=== PATIENT | male | born 1995 | race American Indian/Alaskan Native ===

== ENCOUNTER 2016-04-21 19:22 | Emergency (ER) | payer MEDICAID, OTHER ==
--- NOTE | 2016-04-21 23:20 | Emergency Department Report ---
HPI - General Chief Complaint: Animal Bite Time Seen by Provider: 04/21/16 23:03 - HPI HPI: 21-year-old male presents today with a dog bite to his left arm and right thigh that occurred at 1830 hrs. today. The dog was unknown therefore patient is unaware of the immunization records. Rates his pain as 8 out of 10. Positive for swelling. Denies fever, chills, nausea, vomiting, chest pain, shortness of breath, abdominal pain. Denies discharge or bleeding. Tetanus status unknown. ED Past Medical Hx - Past Medical History Previous Medical History?: No - Surgical History Past Surgical History?: No - Social History Smoking Status: Never Smoker Substance Use Type: None - Medications Home Medications: Home Medications Medication Instructions Recorded Confirmed Last Taken Type HYDROcodone/APAP 5-325 [May 1 each PO Q6HR PRN #8 tablet 08/07/13 Unknown Rx 5-325 mg TAB] Ondansetron [Zofran Odt] 4 mg SL Q6H PRN #8 tab.rapdis 08/07/13 Unknown Rx Acetaminophen/Codeine [Tylenol #3] 1 tab PO Q6H PRN #10 tab 04/22/16 Unknown Rx Amoxicillin/K Clav Tab [Augmentin 1 tab PO Q12HR #20 tab 04/22/16 Unknown Rx 875 mg] ED Review of Systems ROS: Stated complaint: DOG BITE Other details as noted in HPI Constitutional: denies: chills, fever, malaise Eyes: denies: eye pain ENT: denies: ear pain, throat pain, congestion Respiratory: denies: cough, shortness of breath, wheezing Cardiovascular: denies: chest pain, palpitations Endocrine: no symptoms reported Gastrointestinal: denies: abdominal pain, nausea, vomiting Neurological: denies: headache, weakness Physical Exam - Physical Exam Vital Signs: Vital Signs 04/21/16 21:18 Temperature 98.5 F Pulse Rate 67 Respiratory 18 Rate Blood Pressure 112/66 O2 Sat by Pulse 100 Oximetry Physical Exam: GENERAL: The patient is well-developed and well-nourished. Patient is in NAD. HEAD: Normocephalic. Atraumatic. CHEST/LUNGS: Clear to auscultation throughout. HEART/CARDIOVASCULAR: Regular rate and rhythm. ABDOMEN: Abdomen is soft, nontender. No guarding or rebound tenderness. LEFT UPPER EXTREMITY: 1.5 cm linear, superficial laceration noted over the ventral aspect of distal left forearm. No active bleeding. Minimal tenderness to palpation. Normal sensation. 2 point discrimination intact. Full wrist and digits range of motion. Peripheral pulses intact. Capillary refill less than 2 seconds. RIGHT LOWER EXTREMITY: Superficial bite rodriguez noted over the lateral aspect proximal upper leg. No active bleeding. Peripheral pulses intact. Capillary refill less than 2 seconds. NEURO: Alert and oriented x 3. Normal gait. ED Course Vital Signs 04/21/16 21:18 Temperature 98.5 F Pulse Rate 67 Respiratory 18 Rate Blood Pressure 112/66 O2 Sat by Pulse 100 Oximetry ED Medical Decision Making - Lab Data Vital Signs 04/21/16 21:18 Temperature 98.5 F Pulse Rate 67 Respiratory 18 Rate Blood Pressure 112/66 O2 Sat by Pulse 100 Oximetry - Medical Decision Making 21-year-old male presents today with bite rodriguez to his left forearm and right thigh. His tetanus status was updated today. Patient was given the first rabies vaccination. Explained to patient that he needs to return on day 3, 7 and 14 for his rabies vaccination course. Patient expressed understanding. The wounds were copiously irrigated, triple antibiotic ointment was applied and wound was dressed. Patient is in no acute distress at this time. He will be discharged home and is encouraged to follow up with a primary care provider. He will be sent home on Augmentin and Tylenol 3 and is encouraged to return to the emergency room for any worsening symptoms. Critical care attestation.: If time is entered above; I have spent that time in minutes in the direct care of this critically ill patient, excluding procedure time. ED Disposition Clinical Impression: Dog bite Qualifiers: Encounter type: initial encounter Qualified Code(s): W54.0XXA - Bitten by dog, initial encounter Disposition: DISCHARGED TO HOME OR SELFCARE Is pt being admited?: No Does the pt Need Aspirin: No Condition: Stable Instructions: Animal Bite (ED) Additional Instructions: Return to the ER on day 3, 7 and 14 for your rabies vaccinations. Follow-up with her primary care provider. Return to the emergency department if symptoms worsen. Prescriptions: Acetaminophen/Codeine [Tylenol #3] 1 tab PO Q6H PRN #10 tab PRN Reason: Pain Amoxicillin/K Clav Tab [Augmentin 875 mg] 1 tab PO Q12HR #20 tab Referrals: PRIMARY CARE, [Primary Care Provider] - 3-5 Days [facility] [Outside] - 3-5 Days Forms: Work/School Release Form(ED) Time of Disposition: 01:16
[2016-04-22] MEDS: BOOSTRIX IM ONE (01:11)
[2016-04-22] MEDS: hyperRAB S/D IM ONE (01:13)
[2016-04-22] MEDS: RABAVERT RABIES VACCINE(PCEC) IM ONE (01:13)
[2016-04-22] MEDS: TRIPLE ANTIBIOTIC TP ONE (01:23)
[2016-04-22] MEDS: NACL 0.9% IR ONE (01:24)
[2016-04-22 01:51] VITALS: BP 136/87
== END 2016-04-22 01:54 | disposition home or self-care (01) ==
LOC: ED 19:22
DX: S50.872A Other superficial bite of left forearm, initial encounter (principal); S70.371A Other superficial bite of right thigh, initial encounter; W54.0XXA Bitten by dog, initial encounter; Y93.9 Activity, unspecified; Y92.89 Other specified places as the place of occurrence of the external cause; Y99.9 Unspecified external cause status
CPT/HCPCS: 90375; 90471; 90675; 90715; A6250

== ENCOUNTER 2016-04-25 17:49 | Emergency (ER) | payer OTHER ==
[2016-04-25 18:56] VITALS: BP 129/51
[2016-04-25] MEDS ORDERED: RABAVERT RABIES VACCINE(PCEC) IM ONE (20:34)
--- NOTE | 2016-04-25 21:31 | Emergency Department Report ---
ED Recheck HPI - General Chief Complaint: Recheck/Abnormal Lab/Rx Stated Complaint: RABIES SHOT Time Seen by Provider: 04/25/16 21:25 Source: patient Mode of arrival: Ambulatory Limitations: No Limitations - History of Present Illness Initial Comments: Patient presents today for dose 2/4 of rabies vaccine series. He was seen here on 04/22/16 after he sustained a bite to his left forearm and right thigh by an unprovoked pitbull. He received initial vaccine series on day zero (04/22/16). As of today, he Denies pain, fever, chills, nausea, vomit, hydrophobia, weakness. He has no acute complaints today. - Related Data Previous Rx's Medication Instructions Recorded Last Taken Type HYDROcodone/APAP 5-325 [Triplett 1 each PO Q6HR PRN #8 tablet 08/07/13 Unknown Rx 5-325 mg TAB] Ondansetron [Zofran Odt] 4 mg SL Q6H PRN #8 tab.rapdis 08/07/13 Unknown Rx Acetaminophen/Codeine [Tylenol #3] 1 tab PO Q6H PRN #10 tab 04/22/16 Unknown Rx Amoxicillin/K Clav Tab [Augmentin 1 tab PO Q12HR #20 tab 04/22/16 Unknown Rx 875 mg] Allergies Allergy/AdvReac Type Severity Reaction Status Date / Time No Known Allergies Allergy Verified 04/21/16 21:23 ED Review of Systems ROS: Stated complaint: RABIES SHOT Other details as noted in HPI Comment: All other systems reviewed and negative ED Past Medical Hx - Social History Smoking Status: Never Smoker Substance Use Type: None - Medications Home Medications: Home Medications Medication Instructions Recorded Confirmed Last Taken Type HYDROcodone/APAP 5-325 [Triplett 1 each PO Q6HR PRN #8 tablet 08/07/13 Unknown Rx 5-325 mg TAB] Ondansetron [Zofran Odt] 4 mg SL Q6H PRN #8 tab.rapdis 08/07/13 Unknown Rx Acetaminophen/Codeine [Tylenol #3] 1 tab PO Q6H PRN #10 tab 04/22/16 Unknown Rx Amoxicillin/K Clav Tab [Augmentin 1 tab PO Q12HR #20 tab 04/22/16 Unknown Rx 875 mg] ED Physical Exam - General Limitations: No Limitations General appearance: alert, in no apparent distress - Head Head exam: Present: atraumatic, normocephalic - Respiratory Respiratory exam: Present: normal lung sounds bilaterally. Absent: respiratory distress - Cardiovascular Cardiovascular Exam: Present: regular rate, normal rhythm - Extremities Exam Extremities exam: Present: full ROM, normal capillary refill. Absent: tenderness, pedal edema, joint swelling, calf tenderness - Neurological Exam Neurological exam: Present: alert, oriented X3, normal gait, reflexes normal. Absent: motor sensory deficit - Psychiatric Psychiatric exam: Present: normal affect, normal mood - Skin Skin exam: Present: warm, dry, other (bite wounds noted to left forearm and right thigh. Healing nicely w/o signs of infection.). Absent: rash ED Course Vital Signs 04/25/16 18:50 Temperature 98.8 F Pulse Rate 62 Blood Pressure 129/51 O2 Sat by Pulse 100 Oximetry ED Recheck MDM - Medical Decision Making 21 YOM seen for dose 2/4 of rabibis vaccine series. Patient is stable. Bite wounds to extremities appear to be healing nicely. 1 ml of rabbis vaccine administered by fast track nurse. He will be DC'd to return on day 7 for dose 3/ 4 of vaccine series. patient education and follow up instructions provided. He verbalized understanding and is agreeable to plan. Critical care attestation.: If time is entered above; I have spent that time in minutes in the direct care of this critically ill patient, excluding procedure time. ED Disposition Clinical Impression: Encounter for repeat administration of rabies vaccination, Encounter for wound re-check Disposition: DISCHARGED TO HOME OR SELFCARE Is pt being admited?: No Does the pt Need Aspirin: No Condition: Stable Instructions: Rabies Vaccine (Injection) Additional Instructions: Follow previous care Instructions. Return to the ED on 04/29/16 (day 7) for dose 3/4 of rabbis vaccine series. May return to ED sooner if needed. Referrals: PRIMARY CARE, [Primary Care Provider] - 2-3 Days
== END 2016-04-25 21:47 | disposition home or self-care (01) ==
LOC: ED 17:49
DX: Z23 Encounter for immunization (principal); Z48.00 Encounter for change or removal of nonsurgical wound dressing
CPT/HCPCS: 90471; 90675